=== PATIENT | male | born 1945 | race Caucasian/White ===

== ENCOUNTER 2017-12-22 12:23 | Emergency (ER) | payer MEDICARE, MEDICAID ==
[~2017-12-22] VITALS: Ht 160 cm; Wt 43.0 kg
[2017-12-22 13:13] VITALS: BP 106/56; PULSE 91; RESP 22; TEMP 98; O2SAT 95
--- NOTE | 2017-12-22 13:54 | RADRPT ---
EXAM DATE: 12/22/2017 1:51 PM EDT AGE/SEX: 72 years / Male INDICATIONS: Cough, short of breath, right flank pain. CLINICAL DATA: This is the patient's initial encounter. Patient reports that signs and symptoms have been present for 1 day and indicates a pain score of 8/10. MEDICAL/SURGICAL HISTORY: None. None. COMPARISON: No prior [place] exams available for comparison. FINDINGS: PA and lateral views of the chest demonstrate marked hyperinflation with severe fibrosis and scarring most prominent in the apices and right lateral base. No superimposed acute infiltrate or effusion. H eart size is normal. Osseous structures are. CONCLUSION: 1. Findings of COPD with pleural parenchymal scarring as above. 2. No superimposed acute infiltrate. Electronically signed by: Mitch Mock MD 12/22/2017 1:52 PM EDT
[2017-12-22 14:13] LABS: AUTOMATED NEUTROPHIL # 6.7 TH/MM3 (1.8-7.7); BASOPHIL # 0.1 TH/MM3 (0-0.2); BASOPHIL % 0.6 % (0.0-2.0); EOSINOPHIL # 0.2 TH/MM3 (0-0.4); EOSINOPHIL % 1.7 % (0.0-4.0); HEMATOCRIT 37.9 % (39.0-51.0); HEMOGLOBIN 12.5 GM/DL (13.0-17.0); LYMPH % 22.9 % (9.0-44.0); LYMPHOCYTE # 2.1 TH/MM3 (1.0-4.8); MEAN CELL VOLUME 89.7 FL (80.0-100.0); MEAN CORPUSCULAR HEMOGLOBIN 29.5 PG (27.0-34.0); MEAN CORPUSCULAR HGB CONC 32.9 % (32.0-36.0); MONO % 2.5 % (0.0-8.0); MONOCYTE # 0.2 TH/MM3 (0-0.9); NEUT % 72.3 % (16.0-70.0); PLATELET COUNT 238 TH/MM3 (150-450); RED BLOOD COUNT 4.23 MIL/MM3 (4.50-5.90); RED CELL DISTRIBUTION WIDTH 14.4 % (11.6-17.2); WHITE BLOOD COUNT 9.2 TH/MM3 (4.0-11.0)
[2017-12-22 14:40] LABS: BICARBONATE 28.2 MEQ/L (21.0-32.0); CALCIUM 9.2 MG/DL (8.5-10.1); CREATININE 1.07 MG/DL (0.60-1.30)
[2017-12-22] MEDS ORDERED: RESP: ALBUTEROL 2.5 MG/IPRATROPIUM 0.5 MG NEB (SCH) NEB ONE (16:15)
[2017-12-22] MEDS ORDERED: traMADol HCL 50 MG TAB PO ONE (16:15)
[2017-12-22 16:17] VITALS: BP 123/61; PULSE 65; RESP 19; O2SAT 91
[2017-12-22] MEDS ORDERED: HYDR-3583 PO (16:17)
--- NOTE | 2017-12-22 17:38 | RADRPT ---
EXAM DATE: 12/22/2017 5:28 PM EDT AGE/SEX: 72 years / Male INDICATIONS: Shortness of breath, right shoulder pain. CLINICAL DATA: This is the patient's initial encounter. Patient reports that signs and symptoms have been present for 1 day and indicates a pain score of 4/10. MEDICAL/SURGICAL HISTORY: Emphysema. Chronic obstructive pulmonary disease. None. RADIATION DOSE: 4.07 CTDI (mGy) COMPARISON: No prior [place] exams available for comparison. TECHNIQUE: Multiple contiguous axial images were obtained through the chest without contrast. Image s were obtained in suspended respiration using multiple row detector helical technique. Using automa ramon exposure control and adjustment of the mA and/or kV according to patient size, radiation dose was kept as low as reasonably achievable to obtain optimal diagnostic quality images. FINDINGS: Lungs: Severe emphysematous changes, most prominent in the apices. Interstitial prominence periphera lly in the right lower lobe with some regional airspace disease I believe represents developing fibro sis with atelectasis although an early infiltrate cannot be completely excluded. No acute infiltrate on the left Mediastinum: There is good visualization of the great vessels of the middle mediastinum. No evidenc e of mediastinal or hilar adenopathy/mass. There is dense calcification of the aortic valve. Mild denise cification of the coronary arteries. Pleurae: No evidence of focal thickening or pleural effusion. Axillae: Unremarkable. Bony Structures: Unremarkable. Miscellaneous: The examination was extended to include the upper abdomen, and both adrenal glands ar e normal in size and configuration. CONCLUSION: 1. Severe emphysematous changes most prominent in the apices. 2. Some interstitial prominence in developing airspace disease in the right base may represent fibro sis/atelectasis although early infiltrate cannot be excluded. Recommend follow-up CT scan of the ches t after therapy to ensure stability/resolution. 3. Dense calcification of the aortic valve Electronically signed by: Mitch Mock MD 12/22/2017 5:37 PM EDT
--- NOTE | 2017-12-22 17:48 | PD ---
HPI Chief Complaint: Respiratory Distress Time Seen by Provider: 15:55 Travel History International Travel<30 days: No Contact w/Intl Traveler<30days: No Traveled to known affect area: No History of Present Illness HPI Patient is a 72 year old male who comes in complaining of pain just below his right scapula. He says this has been going on for the past few days. He denies any injury. He says it hurts to take a deep breath. He has not taken anything for the pain. He denies any chest pain. He denies nausea or vomiting. Severity is mild to moderate. PFSH Past Medical History Arthritis: Yes Diminished Hearing: No Medical other: Yes (nasal fracture ) Immunizations Current: No Tetanus Vaccination: Unknown Influenza Vaccination: No Past Surgical History Appendectomy: Yes Social History Alcohol Use: No Tobacco Use: Yes Substance Use: No Allergies-Medications (Allergen,Severity, Reaction): Coded Allergies: penicillin G (Unverified Allergy, Intermediate, 12/22/17) Uncoded Allergies: SHARK (Adverse Reaction, Intermediate, 04/04/03) Reported Meds & Prescriptions Reported Meds & Active Scripts Active Reported Hydrocodone-Acetaminophen 10-325 mg Tab 1 Tab PO Q6H PRN Review of Systems Except as stated in HPI: all other systems reviewed are Neg General / Constitutional: No: Fever, Chills HENT: No: Headaches, Lightheadedness Cardiovascular: No: Chest Pain or Discomfort Respiratory: No: Shortness of Breath Gastrointestinal: No: Nausea, Vomiting Musculoskeletal: Positive: Pain Skin: No Rash, No Itching Neurologic: No: Weakness, Dizziness Physical Exam Narrative GENERAL: Awake and alert, in no acute distress. SKIN: Focused skin assessment warm/dry. No wounds or signs of infection. HEAD: Atraumatic. Normocephalic. EYES: Pupils equal and round. No scleral icterus. ENT: Mucous membranes pink and moist. NECK: Trachea midline. No JVD. CARDIOVASCULAR: Regular rate and rhythm. No murmur appreciated. Tender to palpation of the right lower posterior ribs. RESPIRATORY: No accessory muscle use. Clear to auscultation. Breath sounds equal bilaterally. GASTROINTESTINAL: Abdomen soft, non-tender, nondistended. MUSCULOSKELETAL: No obvious deformities. No clubbing. No cyanosis. No edema. NEUROLOGICAL: Awake and alert. No obvious cranial nerve deficits. Motor grossly within normal limits. Normal speech. PSYCHIATRIC: Appropriate mood and affect; insight and judgment normal. Data Data Last Documented VS Vital Signs Date Time Temp Pulse Resp B/P (MAP) Pulse Ox O2 Delivery O2 Flow Rate FiO2 12/22/17 16:17 65 19 123/61 (81) 91 Aerosol Mask 12/22/17 13:13 98.0 Orders Orders Complete Blood Count With Diff (12/22/17 13:16) Basic Metabolic Panel (Bmp) (12/22/17 13:16) Chest, Pa & Lat (12/22/17 13:16) Electrocardiogram (12/22/17 13:16) Ct Thorax/ Chest Wo Iv Contras (12/22/17 ) Albuterol-Ipratropium Neb (Duoneb Neb) (12/22/17 16:15) Tramadol (Ultram) (12/22/17 16:15) Labs Laboratory Tests Test 12/22/17 13:35 White Blood Count 9.2 TH/MM3 Red Blood Count 4.23 MIL/MM3 Hemoglobin 12.5 GM/DL Hematocrit 37.9 % Mean Corpuscular Volume 89.7 FL Mean Corpuscular Hemoglobin 29.5 PG Mean Corpuscular Hemoglobin Concent 32.9 % Red Cell Distribution Width 14.4 % Platelet Count 238 TH/MM3 Mean Platelet Volume 9.0 FL Neutrophils (%) (Auto) 72.3 % Lymphocytes (%) (Auto) 22.9 % Monocytes (%) (Auto) 2.5 % Eosinophils (%) (Auto) 1.7 % Basophils (%) (Auto) 0.6 % Neutrophils # (Auto) 6.7 TH/MM3 Lymphocytes # (Auto) 2.1 TH/MM3 Monocytes # (Auto) 0.2 TH/MM3 Eosinophils # (Auto) 0.2 TH/MM3 Basophils # (Auto) 0.1 TH/MM3 CBC Comment DIFF FINAL Differential Comment Blood Urea Nitrogen 16 MG/DL Creatinine 1.07 MG/DL Random Glucose 89 MG/DL Calcium Level 9.2 MG/DL Sodium Level 136 MEQ/L Potassium Level 5.4 MEQ/L Chloride Level 100 MEQ/L Carbon Dioxide Level 28.2 MEQ/L Anion Gap 8 MEQ/L Estimat Glomerular Filtration Rate 68 ML/MIN MDM Medical Decision Making Medical Screen Exam Complete: Yes Emergency Medical Condition: Yes Medical Record Reviewed: Yes Differential Diagnosis rib fracture vs COPD vs pneumonia Narrative Course Patient is a 72 year old male who comes in complaining of pain just below his right scapula. Exam shows tenderness to palpation of the ribs. CXR performed shows no acute abnormalities. Labs show no acute abnormalities. CT chest performed shows possible developing infiltrate. Last 24 hours Impressions Chest X-Ray 12/22/17 1316 Signed Impressions: CONCLUSION: 1. Findings of COPD with pleural parenchymal scarring as above. 2. No superimposed acute infiltrate. Chest CT 12/22/17 0000 Signed Impressions: CONCLUSION: 1. Severe emphysematous changes most prominent in the apices. 2. Some interstitial prominence in developing airspace disease in the right ba se may represent fibrosis/atelectasis although early infiltrate cannot be exclu ded. Recommend follow-up CT scan of the chest after therapy to ensure stability /resolution. 3. Dense calcification of the aortic valve Given norco. Will be discharged with prescription for Azithromycin. Advised to stop smoking. Advised to follow up with a primary care doctor. Advised to return as needed for any worsening symptoms. Diagnosis Primary Impression: Rib pain on right side Additional Impression: Lung infiltrate on CT Referrals: [facility] Patient Instructions: Acute Bronchitis (ED), General Instructions, Rib Contusion (ED) Additional Instructions: Follow-up with a primary care doctor. Take all the antibiotic. Take pain medicine as needed. Return to the ED as needed for any worsening symptoms. Try to quit smoking. Scripts Albuterol 18 GM Inh (Ventolin Hfa 18 GM Inh) 90 Mcg/Act Aer 2 PUFF INH Q4-6H Y for SHORTNESS OF BREATH, #1 INHALER 0 Refills Prov: Ria Grant MD 12/22/17 Azithromycin (Zithromax Z-Conrad) 250 Mg Dspk 250 MG PO DIRECTED for Infection, #1 DSPK 0 Refills 500 MG (2 tabs) day 1, then 1 tab days 2-5. Prov: Ria Grant MD 12/22/17 Hydrocodone-Acetaminophen ([place]) 5 Mg-325 Mg Tab 1 TAB PO Q6H Y for PAIN, #7 TAB 0 Refills Prov: Ria Grant MD 12/22/17 Disposition: 01 DISCHARGE HOME Condition: Stable Ria Grant MD Dec 22, 2017 17:48
[2017-12-22] MEDS ORDERED: VENTAER INH (18:00)
[2017-12-22] MEDS ORDERED: ZITHTAB PO (18:00)
[2017-12-22] MEDS ORDERED: NORC5TAB PO (18:00)
--- NOTE | 2017-12-23 15:49 | EKG ---
Date Performed: 12/22/2017 Time Performed: 13:28:04 PTAGE: 72 years EKG: Sinus rhythm POSSIBLE LEFT ATRIAL ENLARGEMENT POSSIBLE LEFT VENTRICULAR HYPERTROPHY ABNORMAL ECG Since the PREVIOUS TRACING , no significant change noted PREVIOUS TRACIN11/26/2004 16.48 DOCTOR: Karey Gabriel Interpretating Date/Time 12/23/2017 15:48:30
== END 2017-12-22 18:25 | disposition home or self-care (01) ==
LOC: NEPE 12:23
DX: R07.81 Pleurodynia (principal); J44.9 Chronic obstructive pulmonary disease, unspecified; Z72.0 Tobacco use
CPT/HCPCS: 71046; 71250; 80048; 85025; 93005; 94664